=== PATIENT | male | born 1955 | race Caucasian/White ===

== ENCOUNTER 2024-04-18 15:17 | Emergency (ER) | payer MEDICARE, OTHER, SELFPAY ==
[2024-04-18 15:34] VITALS: BP 119/78; PULSE 83; RESP 16; TEMP 36.6; O2SAT 98
--- NOTE | 2024-04-18 15:39 | ED.SKABFB ---
HPI - Skin/Abscess/Foreign Bdy General Chief complaint: Skin/Abscess/Foreign Body Stated complaint: Rash Time Seen by Provider: 04/18/24 15:39 Source: patient Mode of arrival: ambulatory Limitations: no limitations History of Present Illness HPI narrative: 69 yo M presents with c/o rash and itching started today. Pt had contrast dye yesterday of CT ABD and thinks he is having allergic reaction. Took benadryl at 6am with no relief of rash. No difficulty swallowing or breathing. All systems reviewed and negative except as noted above. Related Data Home Medications Medication Instructions Recorded Confirmed famotidine 40 mg tablet mg 04/18/24 fluticasone propionate 50 intranasal 04/18/24 mcg/actuation nasal spray,suspension pantoprazole 40 mg tablet,delayed mg PO 04/18/24 release tamsulosin 0.4 mg capsule mg PO 04/18/24 Allergies Allergy/AdvReac Type Severity Reaction Status Date / Time povidone-iodine Allergy Rash Verified 04/18/24 15:55 [From Betadine] Review of Systems Review of Systems: CONSTITUTIONAL: Denies fever, chills, or sweats. EYES: Denies visual changes, redness, or discharge. ENT: Denies rhinorrhea, congestion, sore throat, or otalgia. CARDIOVASCULAR: Denies chest pain, palpitations, or edema. RESPIRATORY: Denies cough or dyspnea. GASTROINTESTINAL: Denies abdominal pain, nausea, vomiting, or diarrhea. GENITOURINARY: Denies dysuria or hematuria. SKIN: Reports rash with itching. MUSCULOSKELETAL: Denies back pain, joint pain, or myalgia. NEUROLOGIC: Denies headache, numbness, or weakness. PSYCHIATRIC: Denies anxiety or depression. All other systems reviewed are negative, except as documented in HPI. [facility] Comments At time of signature, agree with nursing past medical, surgical, social and family history. There is no relevant family history pertinent to the presenting complaint. Exam Narrative: GENERAL: This is a well-nourished, well-developed patient, in no apparent distress. HEAD: normocephalic, atraumatic. EYES: PERRL. Sclera clear/white. Vision is grossly intact. EARS: External ears normal NOSE: External nose normal NECK: Neck supple, non-tender without lymphadenopathy, masses or thyromegaly. CARDIOVASCULAR: Regular rate and rhythm without murmurs, gallops, or rubs. RESPIRATORY: Clear to auscultation. Breath sounds equal bilaterally. No wheezes, rales, or rhonchi. SKIN: warm, Dry, intact with no suspicious lesions, good texture and turgor. erythematous fine maculopapular rash to bilateral arms, trunk ,neck NEURO: awake, alert, and oriented to person, place and time. There were no obvious focal neurologic abnormalities. EXTREMITIES: No joint tenderness, effusion, or edema noted. Course Course Level of Care: Express Care Visit Vital Signs Vital signs: Vital Signs Temperature 36.6 C 04/18/24 15:34 Pulse Rate 83 04/18/24 15:34 Respiratory Rate 16 04/18/24 15:34 Blood Pressure 119/78 04/18/24 15:34 Pulse Oximetry 98 04/18/24 15:34 Temperature 36.6 C 04/18/24 15:34 Pulse Rate 83 04/18/24 15:34 Respiratory Rate 16 04/18/24 15:34 Blood Pressure 119/78 04/18/24 15:34 Pulse Oximetry 98 04/18/24 15:34 Reviewed MDM - Skin/Abscess/Foreign Bdy MDM Narrative Medical decision making narrative: pt taking benadryl for allergic reaction. Take pepcid daily. given IM solumedrol at [facility] and prescription prednisone. recommend he inform PCP of allergic reaction. nontoxic. Patient is aware of diagnosis, understands and agrees to treatment plan. Anticipatory guidance given. Patient agrees to follow-up as directed and is aware of reasons to seek care at the emergency department. Portions of this record may have been created with voice recognition software Discharge Plan Discharge Clinical Impression: Allergic reaction Qualifiers: Encounter type: initial encounter Qualified Code(s): T78.40XA - Allergy, unspecified, initial en
[2024-04-18] MEDS: methylPREDNISolone SOD SUCC 125 MG VIAL IM (16:03)
== END 2024-04-18 16:24 | disposition home or self-care (01) ==
PROVIDERS: Emergency Provider Nurse Practitioner Family
DX: T78.40XA Allergy, unspecified, initial encounter (principal); N40.0 Benign prostatic hyperplasia without lower urinary tract symptoms; I25.2 Old myocardial infarction; Z95.5 Presence of coronary angioplasty implant and graft; Z85.51 Personal history of malignant neoplasm of bladder
CPT/HCPCS: 96372; 99203; G0463; J2919